=== PATIENT | male | born 1980 | race Caucasian/White ===

== ENCOUNTER 2018-04-29 12:27 | Emergency (ER) | payer OTHER, SELFPAY ==
[2018-04-29 12:45] VITALS: BP 146/94; PULSE 86; RESP 16; TEMP 36.6; O2SAT 98; BMI 32.5
--- NOTE | 2018-04-29 12:54 | ED.ABDPAIN ---
HPI - Abdominal Pain General Chief Complaint: Abdominal Pain Stated Complaint: cant swallow Time Seen by Provider: 04/29/18 12:53 Source: patient Mode of arrival: ambulatory Limitations: no limitations History of Present Illness HPI narrative: 37-year-old otherwise healthy male here for evaluation of problem swallowing food at lunch today. Patient states that on Friday night he had an episode of what he described was reflux. He states that he ate pizza that evening. States that he has had occasional reflux in the past but nothing on a regular basis. He states that this event resolved. Has been tolerating oral liquids and solids for the past 2 days. States he did not eat breakfast this morning. States that lunch today he ate a sub sandwich and vomited afterwards. He denies chest pain. States that he can tolerate liquids. Related Data Previous Rx's Medication Instructions Recorded sucralfate [Carafate] 10 ml PO QID PRN #420 ml 04/29/18 Review of Systems Constitutional Denies chills, Denies fever(s), Denies lethargy and Denies weakness Cardiovascular Denies dyspnea and Denies dyspnea on exertion Respiratory Denies cough, Denies dyspnea, Denies dyspnea on exertion and Denies wheezing Gastrointestinal Gastrointestinal: Denies abdominal pain, Denies change in bowel habits, Denies diarrhea, Denies nausea and Denies vomiting Integumentary/Breasts Denies pruritus, Denies erythema, Denies rash and Denies wounds Neurologic Denies weakness Hematologic/Lymphatic Denies easy bruising Allergic/Immunologic Denies wheezing [facility] Social History Smoking Status: Never smoker Exam Initial Vital Signs Initial Vital Signs: Vital Signs Temperature 98 F 04/29/18 12:45 Pulse Rate 86 04/29/18 12:45 Respiratory Rate 16 04/29/18 12:45 Blood Pressure 146/94 H 04/29/18 12:45 Pulse Oximetry 98 04/29/18 12:45 Resp Effort & Inspection: normal respiratory effort, able to speak in complete sentences, no respiratory distress and no use of accessory muscles Auscultation: clear to auscultation bilaterally, no rales, no rhonchi and no wheezes Cardio Rate: regular rate Rhythm: regular rhythm Heart Sounds: no click, no gallops, no murmurs and no rubs Pulses: normal peripheral pulses GI Inspection: non-distended Palpation: soft, no hepatosplenomegaly, No guarding, No pulsatile mass and No tender Auscultation: normal bowel sounds Skin General: no rashes or lesions noted, No jaundice and No petechiae Course Orders Ordered: Discontinued Medications Al Hydrox/Mg Hydrox/Simethicone 20 ml/ Lidocaine HCl 15 ml 0 ml PO NOW ONE Stop: 04/29/18 13:15 Vital Signs - 8 hr 04/29/18 12:45 Temperature 98 F Pulse Rate 86 Respiratory Rate 16 Blood Pressure 146/94 H Pulse Oximetry 98 MDM - Abdominal Pain MDM Narrative Medical decision making narrative: Patient is nontoxic. Has a benign exam. Has been tolerating liquids. Has been tolerating solids before lunch today. Had 1 episode of vomiting. I have a low suspicion for esophageal blockage now. Patient was given GI cocktail here in the emergency department. Will send home with a prescription of Carafate. He was given return precautions. He expressed understanding and agreement with plan Discharge Plan Departure Patient Disposition: Home, Self-Care Clinical Impression: Dysphagia, Acid reflux Activity Restrictions/Additional Instructions: Recommend that you contact your medical department to discuss further treatment. Recommend that you eat a soft diet for the next couple days like we discussed. Return to the emergency department for any new or worsening symptoms Prescriptions: New sucralfate [Carafate] 100 mg/mL suspension 10 ml PO QID PRN (Reason: Reflux) Qty: 420 RF: 0
[2018-04-29 13:28] VITALS: BP 146/90; PULSE 87; RESP 16; O2SAT 100
[2018-04-29] MEDS: MAG HYDROX/ALUMINUM/SIMETH SUS 20 ML, LIDOCAINE VISCOUS 2% 15 ML PO (13:34)
== END 2018-04-29 13:51 | disposition home or self-care (01) ==
PROVIDERS: Emergency Provider Emergency Medicine
DX: K21.9 Gastro-esophageal reflux disease without esophagitis (principal); R13.10 Dysphagia, unspecified
CPT/HCPCS: 99282

== ENCOUNTER 2018-12-10 08:56 | Emergency (ER) | payer OTHER, SELFPAY ==
[2018-12-10 09:20] VITALS: BP 143/96; PULSE 76; RESP 18; TEMP 36.3; O2SAT 97
--- NOTE | 2018-12-10 09:36 | DI.RAD.S_ITS ---
PROCEDURE: XR FOOT RT MIN 3V INDICATIONS: Swelling. TECHNIQUE: 3 views of the foot were acquired. COMPARISON: None. FINDINGS: Bones: No fractures or dislocations. No suspicious bony lesions. Soft tissues: No tibiotalar joint effusion. IMPRESSION: No acute osseous abnormality of the right foot. Consider followup radiographs in 7-10 days if there is continued clinical concern. Dictated by: Angelo Arnold M.D. on 12/10/2018 at 10:25 Approved by: Angelo Arnold M.D. on 12/10/2018 at 10:32
--- NOTE | 2018-12-10 11:05 | ED.EXTPRO ---
HPI - Extremity Problem General Chief complaint: Extremity Problem,Nontraumatic Stated complaint: SWELLING/PAIN RIGHT FOOT Time Seen by Provider: 12/10/18 10:56 Source: patient Mode of arrival: ambulatory Limitations: no limitations History of Present Illness HPI Narrative: Patient is a 38-year-old male who presents with right foot pain. He denies any injury no redness swelling or warmth. He says he was at his daughter's volleyball game when he noticed it was starting to be irritating. It is definitely worse in the morning. He is unable to stand up. He has pain on the lateral side and in the arch. During the day it does get a little bit better. However in the morning it is quite swollen. Related Data Home Medications Medication Instructions Recorded Confirmed triamcinolone acetonide 1 applic TOPICAL DIRECTED 12/10/18 12/10/18 Previous Rx's Medication Instructions Recorded sucralfate [Carafate] 10 ml PO QID PRN #420 ml 04/29/18 Allergies Allergy/AdvReac Type Severity Reaction Status Date / Time No Known Drug Allergies Allergy Verified 04/29/18 13:33 Review of Systems Review of Systems GENERAL: Denies chills,fever HEENT: Denies throat pain RESPIRATORY: Denies dyspnea, cough, wheezing CARDIOVASCULAR: Denies chest pain, palpitations GASTROINTESTINAL: Denies nausea, vomiting MUSCULOSKELETAL: Denies extremity pain, injury SKIN: No rash, no laceration, no pruritus NEUROLOGIC: Denies weakness, dizziness, headache, numbness 8 point review of systems is negative except for those stated above and HPI [facility] Social History Smoking Status: Former smoker Exam Initial Vital Signs Initial Vital Signs: Vital Signs Temperature 97.3 F L 12/10/18 09:20 Pulse Rate 76 12/10/18 09:20 Respiratory Rate 18 12/10/18 09:20 Blood Pressure 143/96 H 12/10/18 09:20 Pulse Oximetry 97 12/10/18 09:20 GENERAL: Well-appearing, well-nourished and in no acute distress. CARDIOVASCULAR: peripheral pulses in tact, cap refill <2 sec RESPIRATORY: No respiratory distress, speaks in full sentences without difficulty EXTREMITIES: Normal range of motion, no clubbing or edema. Neurovascularly intact -right foot minimal lateral swelling no gross bony deformity is neurovascularly intact painful in the arch of the foot to palpation. No erythema NEUROLOGICAL: Cranial nerves II through XII grossly intact. Normal gait and speech. SKIN: Warm, dry, no petechiae, no rashes or lesions. Course Orders Ordered: ED Orders 12/10/18 09:36 XR foot RT min 3V Stat Vital Signs - 8 hr 12/10/18 09:20 12/10/18 11:23 Temperature 97.3 F L Pulse Rate 76 84 Respiratory Rate 18 16 Blood Pressure 143/96 H 155/99 H Pulse Oximetry 97 98 MDM - Extremity (Nontraumatic) Imaging Data right foot XR: Radiologist's impression: PROCEDURE: XR FOOT RT MIN 3V INDICATIONS: Swelling. TECHNIQUE: 3 views of the foot were acquired. COMPARISON: None. FINDINGS: Bones: No fractures or dislocations. No suspicious bony lesions. Soft tissues: No tibiotalar joint effusion. IMPRESSION: No acute osseous abnormality of the right foot. Consider followup radiographs in 7-10 days if there is continued clinical concern. Dictated by: Angelo Arnold M.D. on 12/10/2018 at 10:25 MDM Narrative Medical decision making narrative: Patient is tender along his plantar fascia. He has some mild swelling laterally. At this time no sign of infection. No injury x-ray negative. Discharge Plan Departure Patient Disposition: Home Clinical Impression: Plantar fasciitis, right Discharge Date/Time: 12/10/18 11:23 Interventions: ED Discharge Assessment Last Done: 12/10/18 11:23 Instructions: DI for Plantar Fasciitis Activity Restrictions/Additional Instructions: *You have been diagnosed with plantar fasciitis *What to do: Use a soup can or bald to rolled foot on 1st thing in the morning this will help stretch out the fascia. Continue with NSAIDs ice and elevation *Continue to take medications as directed Ibuprofen 800 mg 3 times a day with food OR naproxen 500 mg twice a day with food *Follow up with your primary care provider in 2-3 days *Return to ER if you should have increasing redness, pain, swelling fever or any new, worsening or concerning symptoms Prescriptions: No Action triamcinolone acetonide 0.1 % cream 1 applic Topical DIRECTED RF: 0 sucralfate [Carafate] 100 mg/mL suspension 10 ml PO QID PRN (Reason: Reflux) Qty: 420 RF: 0 Referrals: [facility] [Provider Group]
[2018-12-10 11:23] VITALS: BP 155/99; PULSE 84; RESP 16; O2SAT 98
--- NOTE | 2018-12-10 11:41 | PC.NURSE ---
right foot pain onset 4 days ago, denies injuries or trauma. has been walking on right heel. denies fever.
== END 2018-12-10 11:23 | disposition home or self-care (01) ==
PROVIDERS: Emergency Provider Emergency Medicine
DX: M72.2 Plantar fascial fibromatosis (principal)
CPT/HCPCS: 73630; 99282; 99283